=== PATIENT | male | born 1990 | race Caucasian/White ===

== ENCOUNTER 2016-12-06 17:54 | Emergency (ER) | payer OTHER ==
[2016-12-06 18:27] VITALS: BP 136/73; PULSE 94; RESP 16; TEMP 98.2; O2SAT 99
[2016-12-06] MEDS ORDERED: MORPHINE SULFATE 4 MG/ML INJ IV PUSH ONE (18:45)
[2016-12-06] MEDS: ONDANSETRON HCL 4 MG/2 ML VIAL IV PUSH ONE (18:45)
[2016-12-06 18:47] VITALS: BP 135/89; PULSE 81; RESP 20; O2SAT 100
[2016-12-06] MEDS: HYDROmorphone HCL PF 1 MG/ML VIAL IV PUSH ONE (19:00)
[2016-12-06] MEDS: MORPHINE SULFATE 4 MG/ML INJ IV PUSH ONE (19:00)
--- NOTE | 2016-12-06 19:17 | RADRPT ---
EXAM DATE/TIME: 12/06/2016 18:59 [facility] COMPARISON: No previous studies available for comparison. INDICATIONS : Left ankle pain after trampoline injury. MEDICAL HISTORY : None. SURGICAL HISTORY : None. ENCOUNTER: Initial ACUITY: 1 day PAIN SCORE: 10/10 LOCATION: Left ankle. FINDINGS: Talonavicular dislocation is present with the foot rotated medially and twisted medially relative to the distal leg. I do not clearly see a displaced fracture though bony detail is obscured on these thornton ited films by bandage material CONCLUSION: Hindfoot dislocation. Alen Murphy MD on December 06, 2016 at 19:13 Board Certified Radiologist. This report was verified electronically.
--- NOTE | 2016-12-06 19:21 | RADRPT ---
EXAM DATE/TIME: 12/06/2016 19:04 [facility] COMPARISON: No previous studies available for comparison. INDICATIONS : Left foot pain after trampoline injury. MEDICAL HISTORY : None. SURGICAL HISTORY : None. ENCOUNTER: Initial ACUITY: 1 day PAIN SCORE: 10/10 LOCATION: Left foot. FINDINGS: Talonavicular dislocation is present. I do not clearly see a fracture. The forefoot is intact. CONCLUSION: Talonavicular dislocation Alen Murphy MD on December 06, 2016 at 19:18 Board Certified Radiologist. This report was verified electronically.
[2016-12-06 19:30] VITALS: O2SAT 100
[2016-12-06] MEDS: PROPOFOL 200 MG/20 ML AMP IV ONE (19:30)
[2016-12-06 19:53] LABS: AUTOMATED NEUTROPHIL # 14.1 TH/MM3 (1.8-7.7); BASOPHIL # 0.1 TH/MM3 (0-0.2); BASOPHIL % 0.6 % (0.0-2.0); EOSINOPHIL # 0.2 TH/MM3 (0-0.4); EOSINOPHIL % 0.9 % (0.0-4.0); HEMATOCRIT 42.6 % (39.0-51.0); HEMO FLAGS DIFF FINAL; LYMPH % 12.2 % (9.0-44.0); LYMPHOCYTE # 2.1 TH/MM3 (1.0-4.8); MEAN CELL VOLUME 88.7 FL (80.0-100.0); MEAN CORPUSCULAR HEMOGLOBIN 30.4 PG (27.0-34.0); MEAN CORPUSCULAR HGB CONC 34.3 % (32.0-36.0); MONO % 6.6 % (0.0-8.0); NEUT % 79.7 % (16.0-70.0); PLATELET COUNT 222 TH/MM3 (150-450); RED BLOOD COUNT 4.81 MIL/MM3 (4.50-5.90); RED CELL DISTRIBUTION WIDTH 12.7 % (11.6-17.2); WHITE BLOOD COUNT 17.7 TH/MM3 (4.0-11.0)
--- NOTE | 2016-12-06 19:56 | PD ---
Physical Exam Date Seen by Provider: December 06, 2016 Time Seen by Provider: 19:00 Narrative IM seen this patient with Stephen Zeng PA-C. The patient presents with left ankle pain and deformity. The patient was at [employer] jumping on the trampoline and presents with left ankle pain and deformity. There are no other injuries. Data Data Last Documented VS Vital Signs Date Time Temp Pulse Resp B/P Pulse Ox O2 Delivery O2 Flow Rate FiO2 12/06/16 20:28 89 16 118/69 100 Room Air 12/06/16 19:30 2.00 12/06/16 18:27 98.2 Orders Complete Blood Count With Diff (12/06/16 18:43) Basic Metabolic Panel (Bmp) (12/06/16 18:43) Magnesium (Mg) (12/06/16 18:43) Iv Access Insert/Monitor (12/06/16 18:43) Morphine Inj (Morphine Inj) (12/06/16 18:45) Ondansetron Inj (Zofran Inj) (12/06/16 18:45) Ice/Cold Pack (12/06/16 18:43) Crutches (12/06/16 18:43) Hydromorphone Pf Inj (Dilaudid Pf Inj) (12/06/16 19:00) Morphine Inj (Morphine Inj) (12/06/16 19:15) Ankle, Limited (Ap&Lat) (12/06/16 18:43) Foot, Limited (2vws) (12/06/16 18:43) Propofol 200 Mg/20 Ml Inj (Diprivan 200 (12/06/16 19:15) Splint Or Brace Apply/Monitor (12/06/16 19:13) Ankle, Limited (Ap&Lat) (12/06/16 19:39) Foot, Limited (2vws) (12/06/16 ) Radiology Film Requests (12/06/16 ) Labs Laboratory Tests Test 12/06/16 19:25 White Blood Count 17.7 TH/MM3 Red Blood Count 4.81 MIL/MM3 Hemoglobin 14.6 GM/DL Hematocrit 42.6 % Mean Corpuscular Volume 88.7 FL Mean Corpuscular Hemoglobin 30.4 PG Mean Corpuscular Hemoglobin 34.3 % Concent Red Cell Distribution Width 12.7 % Platelet Count 222 TH/MM3 Mean Platelet Volume 9.5 FL Neutrophils (%) (Auto) 79.7 % Lymphocytes (%) (Auto) 12.2 % Monocytes (%) (Auto) 6.6 % Eosinophils (%) (Auto) 0.9 % Basophils (%) (Auto) 0.6 % Neutrophils # (Auto) 14.1 TH/MM3 Lymphocytes # (Auto) 2.1 TH/MM3 Monocytes # (Auto) 1.2 TH/MM3 Eosinophils # (Auto) 0.2 TH/MM3 Basophils # (Auto) 0.1 TH/MM3 CBC Comment DIFF FINAL Differential Comment Sodium Level 141 MEQ/L Potassium Level 3.3 MEQ/L Chloride Level 106 MEQ/L Carbon Dioxide Level 26.8 MEQ/L Anion Gap 8 MEQ/L Blood Urea Nitrogen 12 MG/DL Creatinine 1.19 MG/DL Estimat Glomerular Filtration 73 ML/MIN Rate Random Glucose 110 MG/DL Calcium Level 8.6 MG/DL Magnesium Level 1.9 MG/DL MDM Medical Record Reviewed: Yes Supervised Visit with LISETTE: Yes Differential Diagnosis Fracture versus dislocation versus contusion Narrative Course 26 year-old gentleman who was at [place] [id number] on the [facility], presents with ankle dislocation. The patient had successful reduction. The case was discussed with Dr. Cecilio Mac, on-call orthopedic surgeon, who at this point recommends discharge and follow up as an outpatient with orthopedic. The patient had palpable pulses and cap refill is less than 3 seconds. Procedures Procedure Narrative Patient was consented and timeout procedure performed. Patient was given 2 doses of 100 mg of propofol. After the second dose of propofol, using traction countertraction, the left ankle was reduced. Post reduction x-rays show adequate alignment of the x-ray. Diagnosis Primary Impression: Dislocation of left ankle joint, initial encounter Med/Other Pt SpecificInfo: Prescription(s) given Scripts Diclofenac Sodium DR 75 Mg Tabdr75 Mg PO BID PRN (PAIN SCALE 1 TO 10) #20 TAB Prov:Byron Hannah MD 12/06/16 Hydrocodone-Acetaminophen (Lortab)5-325 Mg Tab1 Tab PO Q6H PRN (PAIN) #15 TAB Prov:Byron Hannah MD 12/06/16 Disposition: 01 DISCHARGE HOME Condition: Stable Byron Hannah MD December 06, 2016 19:56
--- NOTE | 2016-12-06 19:59 | PD ---
HPI Chief Complaint: Injury Time Seen by Provider: 19:52 Travel History International Travel<30 days: No Contact w/Intl Traveler<30days: No Traveled to known affect area: No History of Present Illness HPI 26-year-old male that presents to the ED for evaluation of left ankle injury. Patient states that he was at the [employer] and he was jumping a trampoline when he landed wrong on his left leg. Patient denies any other injuries. No head injury or loss of consciousness. Patient has obvious deformity to the left ankle. Patient was brought here by ambulance. Patient was given about 8 mg of morphine IV. Patient was put on a splint. Patient denies any neurological deficits. No allergies to medication. The patient his pain still 10 out of 10. Does not radiate. States mainly on the foot and ankle. No allergies to medication. No previous injuries. PFSH Social History Alcohol Use: Yes (OCC) Tobacco Use: No Substance Use: No Allergies-Medications (Allergen,Severity, Reaction): Coded Allergies: No Known Allergies (Unverified , 12/06/16) Reported Meds & Prescriptions Reported Meds & Active Scripts Active No Active Prescriptions or Reported Medications Review of Systems Except as stated in HPI: all other systems reviewed are Neg Physical Exam Narrative GENERAL: SKIN: Warm and dry. HEAD: Atraumatic. Normocephalic. EYES: Pupils equal and round. No scleral icterus. No injection or drainage. ENT: No nasal bleeding or discharge. Mucous membranes pink and moist. Tongue is midline. No uvula deviation. NECK: Trachea midline. No JVD. CARDIOVASCULAR: Regular rate and rhythm. No murmurs, S3, S4. RESPIRATORY: No accessory muscle use. Clear to auscultation. Breath sounds equal bilaterally. GASTROINTESTINAL: Abdomen soft, non-tender, nondistended. Hepatic and splenic margins not palpable. MUSCULOSKELETAL: Extremities without clubbing, cyanosis, or edema. No obvious deformities. Patient has obvious deformity of the left ankle with the ankle inverted inwards. Patient does have 2+ pulses in posterior tibialis and dorsalis pedis. Bruising and swelling noted on the lateral malleolus. No obvious deformity noted. No sign of skin laceration or deformity. NEUROLOGICAL: Awake and alert. No obvious cranial nerve deficits. Motor grossly within normal limits. Five out of 5 muscle strength in the arms and legs. Normal speech. PSYCHIATRIC: Appropriate mood and affect; insight and judgment normal. Data Data Last Documented VS Vital Signs Date Time Temp Pulse Resp B/P Pulse Ox O2 Delivery O2 Flow Rate FiO2 12/06/16 20:28 89 16 118/69 100 Room Air 12/06/16 18:27 98.2 Orders Complete Blood Count With Diff (12/06/16 18:43) Basic Metabolic Panel (Bmp) (12/06/16 18:43) Magnesium (Mg) (12/06/16 18:43) Iv Access Insert/Monitor (12/06/16 18:43) Morphine Inj (Morphine Inj) (12/06/16 18:45) Ondansetron Inj (Zofran Inj) (12/06/16 18:45) Ice/Cold Pack (12/06/16 18:43) Crutches (12/06/16 18:43) Hydromorphone Pf Inj (Dilaudid Pf Inj) (12/06/16 19:00) Morphine Inj (Morphine Inj) (12/06/16 19:15) Ankle, Limited (Ap&Lat) (12/06/16 18:43) Foot, Limited (2vws) (12/06/16 18:43) Propofol 200 Mg/20 Ml Inj (Diprivan 200 (12/06/16 19:15) Splint Or Brace Apply/Monitor (12/06/16 19:13) Ankle, Limited (Ap&Lat) (12/06/16 19:39) Foot, Limited (2vws) (12/06/16 ) Labs Laboratory Tests Test 12/06/16 19:25 White Blood Count 17.7 TH/MM3 Red Blood Count 4.81 MIL/MM3 Hemoglobin 14.6 GM/DL Hematocrit 42.6 % Mean Corpuscular Volume 88.7 FL Mean Corpuscular Hemoglobin 30.4 PG Mean Corpuscular Hemoglobin 34.3 % Concent Red Cell Distribution Width 12.7 % Platelet Count 222 TH/MM3 Mean Platelet Volume 9.5 FL Neutrophils (%) (Auto) 79.7 % Lymphocytes (%) (Auto) 12.2 % Monocytes (%) (Auto) 6.6 % Eosinophils (%) (Auto) 0.9 % Basophils (%) (Auto) 0.6 % Neutrophils # (Auto) 14.1 TH/MM3 Lymphocytes # (Auto) 2.1 TH/MM3 Monocytes # (Auto) 1.2 TH/MM3 Eosinophils # (Auto) 0.2 TH/MM3 Basophils # (Auto) 0.1 TH/MM3 CBC Comment DIFF FINAL Differential Comment Sodium Level 141 MEQ/L Potassium Level 3.3 MEQ/L Chloride Level 106 MEQ/L Carbon Dioxide Level 26.8 MEQ/L Anion Gap 8 MEQ/L Blood Urea Nitrogen 12 MG/DL Creatinine 1.19 MG/DL Estimat Glomerular Filtration 73 ML/MIN Rate Random Glucose 110 MG/DL Calcium Level 8.6 MG/DL Magnesium Level 1.9 MG/DL MDM Medical Decision Making Medical Screen Exam Complete: Yes Emergency Medical Condition: Yes Medical Record Reviewed: Yes Interpretation(s) CBC & BMP Diagram 12/06/16 19:25 Last Impressions Ankle X-Ray 12/06/161938 Signed Impressions: Service Date/Time: Tuesday, December 06, 2016 19:38 - CONCLUSION: Satisfactory reduction Alen Murphy MD Foot X-Ray [id number]/06/[id number] Signed Impressions: Service Date/Time: Tuesday, December 06, 2016 19:04 - CONCLUSION: Talonavicular dislocation Alen Murphy MD Ankle X-Ray [id number]/06/[id number] Signed Impressions: Service Date/Time: Tuesday, December 06, 2016 18:59 - CONCLUSION: Hindfoot dislocation. Alen Murphy MD Foot X-Ray 12/06/16 0000 Signed Impressions: Service Date/Time: Tuesday, December 06, 2016 19:42 - CONCLUSION: Satisfactory reduction appearance. Alen Murphy MD Differential Diagnosis Dislocation versus fracture versus abrasion versus fracture Narrative Course 26-year-old male that presents to the ED for evaluation of left ankle injury. Patient was properly examined and was found to have signs and symptoms concerning for fracture. Recommendation is for reduction. X-rays show dislocation. Patient agrees to proceed. Please refer to my attendings note as he performed the procedure with me. Re-x-ray was done. Patient was put in splint. X-ray showed reduction successful. Case was discussed with Dr. Mac who recommends follow-up with his office. No surgical intervention at this time. This was discussed with the patient who is in agreement with plan. Patient for she does not live in the area. Patient is actually from [place]. At this time I told the patient that he needs to follow with orthopedic surgeon next week. Patient was given crutches and pain medication prescriptions. Patient was also given reports and CD of his x-rays. Patient agrees with this plan. Follow-up with PCP. See ED worsening symptoms. Diagnosis Primary Impression: Dislocation of left ankle joint, initial encounter Patient Instructions: General Instructions, Narcotic given in the ED, Moderate Sedation (ED) Additional Instructions: Take medications as prescribed. Follow-up with PCP. See ED for any worsening symptoms. Do not drink or drive while taking pain medication. Apply ice or heat as needed for pain Med/Other Pt SpecificInfo: Prescription(s) given Scripts No Active Prescriptions or Reported Meds Disposition: 01 DISCHARGE HOME Condition: Stable Marquis Zeng December 06, 2016 19:59
--- NOTE | 2016-12-06 20:15 | RADRPT ---
EXAM DATE/TIME: 12/06/2016 19:42 [facility] COMPARISON: No previous studies available for comparison. INDICATIONS : Post reduction left foot dislocation MEDICAL HISTORY : None. SURGICAL HISTORY : None. ENCOUNTER: Initial ACUITY: 1 day PAIN SCORE: Non-responsive. LOCATION: Left foot FINDINGS: Bony details obscured by cast material. There is minimal reduction of talonavicular dislocation with a satisfactory appearance. CONCLUSION: Satisfactory reduction appearance. Alen Murphy MD on December 06, 2016 at 20:13 Board Certified Radiologist. This report was verified electronically.
--- NOTE | 2016-12-06 20:15 | RADRPT ---
EXAM DATE/TIME: 12/06/2016 19:38 [facility] COMPARISON: FOOT LEFT LIMITED (2VWS), December 06, 2016, 19:04. INDICATIONS : Post reduction left ankle dislocation MEDICAL HISTORY : None. SURGICAL HISTORY : None. ENCOUNTER: Initial ACUITY: 1 day PAIN SCORE: Non-responsive. LOCATION: Left foot FINDINGS: Bony details obscured by cast material. There has been interval reduction of talonavicular dislocatio n. The alignment is satisfactory. CONCLUSION: Satisfactory reduction Alen Murphy MD on December 06, 2016 at 20:12 Board Certified Radiologist. This report was verified electronically.
[2016-12-06 20:18] LABS: BICARBONATE 26.8 MEQ/L (21.0-32.0); MAGNESIUM 1.9 MG/DL (1.5-2.5); POTASSIUM 3.3 MEQ/L (3.5-5.1)
[2016-12-06 20:28] VITALS: BP 118/69; PULSE 89; RESP 16; O2SAT 100
[2016-12-06] MEDS ORDERED: DICL75TA PO (20:38)
[2016-12-06] MEDS ORDERED: HYDR-3533 PO (20:38)
[2016-12-06 21:36] VITALS: BP 114/66; PULSE 78; RESP 16; O2SAT 98
[2016-12-06 21:54] VITALS: BP 114/57
== END 2016-12-06 22:35 | disposition home or self-care (01) ==
LOC: NEPE 17:54
DX: S93.05XA Dislocation of left ankle joint, initial encounter (principal); Y93.44 Activity, trampolining
CPT/HCPCS: 28435; 29515; 73600; 73620; 80048; 83735; 85025; 96374; 96375; 99283; E0113; J2270; J2405